=== PATIENT | female | born 1945 ===

== ENCOUNTER 2017-09-26 09:41 | Emergency (ER) | payer MEDICAID, MEDICARE ==
[2017-09-26 10:51] LABS: CHLORIDE,CL 103 mmol/L (98-107); SODIUM,NA 140 mmol/L (136-145)
--- NOTE | 2017-09-26 10:59 | EDM.PDOC ---
ED HPI GENERAL MEDICAL PROBLEM - General Chief Complaint: General Stated Complaint: fall Time Seen by Provider: 09/26/17 10:00 Source of Information: Reports: Patient, RN Notes Reviewed History Limitations: Reports: Altered Mental Status - History of Present Illness INITIAL COMMENTS - FREE TEXT/NARRATIVE: Patient is a 71-year-old female who was brought into the emergency room with increased confusion and after a fall she fell earlier in the morning and couldn' t get up she needed for for assistance to bring her up and to ambulate normally she takes about 1 I examined her and physically nothing seems to be out of place or dislocated or fracture weeks we did a CBC a BMP and a UA which are pending and now inability CAT scan of the head. Onset: Sudden Duration: Hour(s): Location: Reports: Generalized Quality: Reports: Other (Patient ADLs when moving unable to pinpoint location) Severity: Moderate Improves with: Reports: Rest Worsens with: Reports: Movement Context: Reports: Other (Fall) Associated Symptoms: Reports: Confusion - Related Data Allergies Allergy/AdvReac Type Severity Reaction Status Date / Time No Known Allergies Allergy Verified 09/26/17 10:05 Home Meds: Home Meds Acetaminophen [Tylenol] 650 mg PO Q6HR PRN MDD 3gms/day 09/26/17 [History] Benztropine Mesylate 1 mg PO BID 09/26/17 [History] Bisacodyl [Dulcolax] 5 mg PO Q12HR PRN 09/26/17 [History] Dextromethorphan/guaiFENesin [Mucinex DM ER 600-30 MG] 1 tab PO [id number] [History] Haloperidol [Haldol] 2.5 mg PO BEDTIME 09/26/17 [History] Losartan Potassium 50 mg PO BID 09/26/17 [History] Memantine HCl [Namenda] 10 mg PO BID 09/26/17 [History] Nitrofurantoin Monohyd/M-Cryst [Macrobid 100 mg Capsule] 100 mg PO BID 10 Days # 20 capsule 09/26/17 [Rx] Sertraline [Zoloft] 100 mg PO DAILY 09/26/17 [History] Social & Family History - Tobacco Use Smoking Status *Q: Former Smoker Used Tobacco, but Quit: Yes Month/Year Tobacco Last Used: 1 - Caffeine Use Caffeine Use: Reports: Coffee, Soda, Tea - Recreational Drug Use Recreational Drug Use: No ED ROS GENERAL - Review of Systems Review Of Systems: See Below Constitutional: Reports: Other (Generalized pain) HEENT: Reports: No Symptoms Respiratory: Reports: No Symptoms Cardiovascular: Reports: No Symptoms Endocrine: Reports: No Symptoms GI/Abdominal: Reports: No Symptoms : Reports: No Symptoms Musculoskeletal: Reports: No Symptoms Skin: Reports: No Symptoms Neurological: Reports: Confusion, Difficulty Walking Psychiatric: Reports: Agitation, Confusion Hematologic/Lymphatic: Reports: No Symptoms Immunologic: Reports: No Symptoms ED EXAM, GENERAL - Physical Exam Exam: See Below Exam Limited By: Altered Mental Status General Appearance: WD/WN Eye Exam: Bilateral Eye: EOMI, PERRL Ears: Normal External Exam, Normal Canal, Hearing Grossly Normal, Normal TMs Nose: Normal Inspection, Normal Mucosa, No Blood Throat/Mouth: Normal Inspection, Normal Lips, Normal Oropharynx Head: Atraumatic, Normocephalic Neck: Normal Inspection, Supple, Non-Tender, Full Range of Motion Respiratory/Chest: No Respiratory Distress, Lungs Clear, Normal Breath Sounds, No Accessory Muscle Use, Chest Non-Tender Cardiovascular: Normal Peripheral Pulses, Regular Rate, Rhythm, No Edema, No Gallop, No JVD, No Murmur, No Rub GI/Abdominal: Normal Bowel Sounds, Soft, Non-Tender, No Organomegaly, No Distention, No Abnormal Bruit, No Mass (Female) Exam: Normal External Exam, Other ([place] placed) Rectal (Female) Exam: Deferred Back Exam: Normal Inspection, Decreased Range of Motion Extremities: Normal Inspection, Normal Range of Motion, Pedal Edema Neurological: Confused, Disoriented, Slow to Respond. No: Normal Cognition Psychiatric: Anxious Skin Exam: Warm, Dry, Intact, Normal Color, No Rash Lymphatic: No Adenopathy Course - Vital Signs Last Recorded V/S: Last Vital Signs Temp 98.3 F 09/26/17 09:42 Pulse 58 L 09/26/17 09:42 Resp 20 09/26/17 09:42 BP 170/82 H 09/26/17 09:42 Pulse Ox 99 09/26/17 09:42 - Orders/Labs/Meds Orders: Active Orders 24 hr Category Date Time Status Head wo Cont [CT] Stat Exams 09/26/17 10:30 Taken UA W/MICROSCOPIC [URIN] Stat Lab 09/26/17 10:45 Ordered Labs: Laboratory Tests 09/26/17 09/26/17 09/26/17 Range/Units 10:30 10:30 10:45 WBC 10.6 H (4.0-10.2) K/uL RBC 4.66 (3.77-5.09) M/uL Hgb 13.4 (11.7-15.5) g/dL Hct 40.5 (34.0-46.0) % MCV 86.9 (84.0-98.0) fL MCH 28.8 (28.2-33.3) pg MCHC 33.1 (31.7-36.0) g/dL RDW 13.8 (11.2-14.1) % Plt Count 277 (150-350) K/uL Neut % (Auto) 69.4 (45.0-80.0) % Lymph % (Auto) 20.3 (10.0-50.0) % Roberts % (Auto) 9.1 (2.0-14.0) % Eos % (Auto) 0.9 (0.0-5.0) % Baso % (Auto) 0.3 (0.0-2.0) % Neut # (Auto) 7.33 H (1.40-7.00) K/uL Lymph # (Auto) 2.14 (0.50-3.50) K/uL Roberts # (Auto) 0.96 (0.00-1.00) K/uL Eos # (Auto) 0.09 (0.00-0.50) K/uL Baso # (Auto) 0.03 (0.00-0.20) K/uL Sodium 140 (136-145) mmol/L Potassium 3.5 (3.5-5.1) mmol/L Chloride 103 (98-107) mmol/L Carbon Dioxide 27.1 (21.0-32.0) mmol/L BUN 10 (7-18) mg/dL Creatinine 0.59 (0.51-1.17) mg/dL Est Cr Clr Drug Dosing 64.08 mL/min Estimated GFR (MDRD) > 60 mL/min Glucose 130 H (74-106) mg/dL Calcium 9.1 (8.5-10.1) mg/dL Specimen Type Urinvoid Urine Color Yellow Urine Appearance Slightly cloudy Urine pH 7.5 (5.0-9.0) Ur Specific [place] 1.015 (1.005-1.030) Urine Protein Negative (NEGATIVE) mg/dL Urine Glucose (UA) Negative (NEGATIVE) mg/dL Urine Ketones Negative (NEGATIVE) mg/dL Urine Occult Blood Negative (NEGATIVE) Urine Nitrite Negative (NEGATIVE) Urine Bilirubin Negative (NEGATIVE) Urine Urobilinogen 0.2 (0.2-1.0) E.U./dL Ur Leukocyte Esterase Large H (NEGATIVE) Urine RBC 0-5 /HPF Urine WBC 10-20 H /HPF Ur Epithelial Cells Few /LPF Urine Bacteria Many H (NONE TO FEW) /HPF Departure - Departure Time of Disposition: 11:45 Disposition: DC/Tfer to [facility] Condition: Fair Clinical Impression: UTI, Urinary tract infectious disease - Discharge Information Prescriptions: Nitrofurantoin Monohyd/M-Cryst [Macrobid 100 mg Capsule] 100 mg PO BID 10 Days # 20 capsule Forms: ED Department Discharge - My Orders Last 24 Hours: My Active Orders 09/26/17 10:30 Head wo Cont [CT] Stat 09/26/17 10:45 UA W/MICROSCOPIC [URIN] Stat - Assessment/Plan Last 24 Hours: My Active Orders 09/26/17 10:30 Head wo Cont [CT] Stat 09/26/17 10:45 UA W/MICROSCOPIC [URIN] Stat
== END 2017-09-26 12:10 ==
LOC: LL.ED 09:41
DX: N39.0 Urinary tract infection, site not specified (principal); Z87.891 Personal history of nicotine dependence; Z79.899 Other long term (current) drug therapy; W19.XXXA Unspecified fall, initial encounter
CPT/HCPCS: 36415; 70450; 80048; 81001; 85025; 99285

== ENCOUNTER 2017-09-27 12:15 | Emergency (ER) | payer MEDICAID ==
[2017-09-27] MEDS ORDERED: Sodium Chloride 0.9% 10 ML Syringe FLUSH PRN (12:16)
[2017-09-27] MEDS ORDERED: Famotidine 20 MG/2 ML SDV IVPUSH ONE (12:16)
--- NOTE | 2017-09-27 12:29 | EDM.PDOC ---
ED HPI GENERAL MEDICAL PROBLEM - General Chief Complaint: Neuro Symptoms/Deficits Stated Complaint: neurodeficit Time Seen by Provider: 09/27/17 12:15 Source of Information: Reports: Patient, EMS, Old Records ([facility] EMR. No paper hospital chart available.). Denies: EMS Notes Reviewed (Not available at time of dictation) History Limitations: Reports: Altered Mental Status - History of Present Illness INITIAL COMMENTS - FREE TEXT/NARRATIVE: The patient was brought to the emergency room via ambulance with special warfare operator accompaniment with O2 at 2 L/m by nasal cannula started by the special warfare operator with no other treatment prior to arrival. Note that the patient did appear normal at about 09:45 hours this morning, however was subsequently found to have some left -sided facial paresis and hemiparesis by the rounding nurse in the senior living at about 11:15 a.m. this morning. No other treatment given in the senior living by senior living staff. Patient does apparently have a previous history of a CVA. No history of fall, injury, sedation, other change in her neurological status with known organic brain syndrome. The patient's blood pressure was 180/ 103 at the senior living prior to transfer with some apparent diaphoresis noted by senior living staff. The patient denies any chest pain/pressure, heart flutter , dizziness, orthostasis, orthopnea, paresthesias, recent decreased exercise tolerance, or any other anginal-type symptoms. No recent history of abdominal pain, heartburn, nausea, diarrhea, melena, gross hematochezia, or any food intolerance, including fatty foods, etc.. The patient also denies any recent fever, cough, wheezing, dyspnea, etc.. She was evaluated in this emergency room yesterday and this facility by Martinez Ruvalcaba M.D. with newly diagnosed UTI and initiation of Macrobid at that time. Note some progressive confusion during the day prior to that evaluation. No history of recent headaches, visual changes , diplopia, change in mental status, or other change in neurological status. She denies any apparent current pain or discomfort. Onset: Today, Unknown/Unsure Onset Date: 09/27/17 Onset Time: 11:15 Duration: Constant Location: Reports: Other (No pain) Improves with: Reports: None Worsens with: Reports: None Context: Reports: Other (As above) Associated Symptoms: Reports: Confusion (As above), Weakness (As above). Denies : Chest Pain, Cough, Diaphoresis, Fever/Chills, Headaches, Loss of Appetite, Malaise, Nausea/Vomiting, Rash, Seizure, Shortness of Breath, Syncope Treatments GRADUATE ENGINEER: Reports: Oxygen - Related Data Allergies Allergy/AdvReac Type Severity Reaction Status Date / Time No Known Allergies Allergy Verified 09/26/17 10:05 Home Meds: Home Meds Acetaminophen [Tylenol] 650 mg PO Q6HR PRN MDD 3gms/day 09/26/17 [History] Benztropine Mesylate 1 mg PO BID 09/26/17 [History] Bisacodyl [Dulcolax] 5 mg PO Q12HR PRN 09/26/17 [History] Dextromethorphan/guaiFENesin [Mucinex DM ER 600-30 MG] 1 tab PO [id number] [History] Haloperidol [Haldol] 2.5 mg PO BEDTIME 09/26/17 [History] Losartan Potassium 50 mg PO BID 09/26/17 [History] Memantine HCl [Namenda] 10 mg PO BID 09/26/17 [History] Nitrofurantoin Monohyd/M-Cryst [Macrobid 100 mg Capsule] 100 mg PO BID 10 Days # 20 capsule 09/26/17 [Rx] Sertraline [Zoloft] 100 mg PO DAILY 09/26/17 [History] Past Medical History Cardiovascular History: Reports: Aneurysm, Hypertension, Syncope, Other (See Below). Denies: Arrhythmia, [place] (/) Other Cardiovascular History: Possible cerebral aneurysm secondary CVA as below Respiratory History: Reports: COPD Gastrointestinal History: Reports: Other (See Below) Other Gastrointestinal History: Umbilical hernia Genitourinary History: Reports: Urinary Incontinence Musculoskeletal History: Reports: Fracture, Osteoarthritis, Other (See Below) Other Musculoskeletal History: Previous wrist fracturesite unknown Neurological History: Reports: Alzheimers Disease, CVA, Other (See Below) Other Neuro History: Normal Pressure hydrocephalus. Known cerebral atrophy with organic brain syndrome. 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 Possible cerebral aneurysm. Psychiatric History: Reports: Alzheimers Disease, Anxiety, Bipolar, Depression , Psychosis, Other (See Below) Other Psychiatric History: Known psychosis and reva - Past Surgical History HEENT Surgical History: Reports: Oral Surgery, Other (See Below) Other HEENT Surgeries/Procedures: Complete teeth extraction Social & Family History - Family History Family Medical History: Unobtainable - Tobacco Use Smoking Status *Q: Current Every Day Smoker Tobacco Use Within Last Twelve Months: Cigarettes Packs/Tins Daily Comment: Smoking history unable to be obtained - Caffeine Use Caffeine Use: Reports: Coffee, Soda, Tea - Living Situation & Occupation Living situation: Reports: [facility] Occupation: Retired ED ROS GENERAL - Review of Systems Review Of Systems: Unable To Obtain ED EXAM, NEURO - Physical Exam Exam: See Below Exam Limited By: Altered Mental Status General Appearance: No Apparent Distress, Lethargic (Mild initially) Eye Exam: Bilateral Eye: EOMI, Normal Fundi, Normal Inspection (No nystagmus), PERRL Ears: Normal External Exam, Normal Canal, Hearing Grossly Normal, Normal TMs Nose: Normal Inspection, Normal Mucosa, No Blood Throat/Mouth: Normal Lips, Normal Gums, Normal Oropharynx, Normal Voice. No: Normal Teeth (Complete absent dentition with complete upper dentures), No Airway Compromise, Dysphagia, Inflammation, Perioral Cyanosis Head Exam: Atraumatic, Normocephalic. No: Facial Swelling, Facial Tenderness, Sinus Tenderness Neck: Supple, Non-Tender, Full Range of Motion, Carotid Bruit (Mild bilateral carotid bruits versus transmitted heart sounds). No: Lymphadenopathy (L), Lymphadenopathy (R), Thyromegaly Respiratory/Chest: No Respiratory Distress, No Accessory Muscle Use, Chest Non- Tender, Rales (Mild diffuse bilateral basilar rales particularly in the bases). No: Rhonchi, Wheezing, Pleural Rub, Retractions Cardiovascular: Normal Peripheral Pulses, Regular Rate, Rhythm, No Edema, No Gallop, No JVD, Systolic Murmur (Mild 1/6 ARACELIS of the aortic valve). No: No Rub , Gallop/S3, Gallop/S4, Friction Rub GI/Abdominal: Normal Bowel Sounds, Soft, Non-Tender, No Organomegaly, No Distention, No Abnormal Bruit, No Mass, Pelvis Stable, Hernia (One centimeter in diameter nonincarcerated umbilical hernia), Other (Obese). No: Guarding (Female) Exam: Deferred Rectal (Female) Exam: Deferred Neurological: Babinski (Positive left sided Babinski's). No: Oriented x 3 ( Mild lethargy which did improve during course of emergency room care. Moderate to severe organic brain syndrome. Mild right facial paresis and hemiparesis with exam difficult secondary to patient's mental status. No significant dysphagia.) Back Exam: Normal Inspection, Full Range of Motion. No: CVA Tenderness (L), CVA Tenderness (R), Muscle Spasm Extremities: Normal Inspection, Normal Range of Motion, Non-Tender, No Pedal Edema, Normal Capillary Refill. No: Del's Sign Psychiatric: Anxious (Mild). No: Depressed Mood Skin Exam: Warm, Dry, Intact, Normal Color, No Rash. No: Diaphoretic, Ecchymosis, Jaundice, Petechiae, Wound/Incision EKG INTERPRETATION EKG Date: 09/27/17 Time: 12:42 Rhythm: NSR Rate (Beats/Min): 77 [place]: Normal P-Wave: Enlarged (Mild diffuse biphasic P waves with severe poor R-wave progression in the anterior leads and cardiomegaly by chest x-ray) QRS: Wide (0.13 seconds with probable threatening complete right bundle branch block with current repolarization changes) ST-T: Other (Nonspecific ST changes with T-wave inversion in leads V6, 1, and aVL consistent with lateral wall cardiac ischemia) QT: Normal [place]/PQ Interval: 0.16 seconds Comparison: NA - No Prior EKG EKG Interpretation Comments: 1. Lateral wall cardiac ischemia 2. Atrial enlargement-left 3. Borderline incomplete right bundle branch block 4. Cardiomegaly by EKG Course - Vital Signs Last Recorded V/S: See stroke code sheet - Orders/Labs/Meds Orders: Active Orders 24 hr Category Date Time Status Blood Glucose Check, Bedside [RC] STAT Care 09/27/17 12:16 Active Cardiac Monitoring [RC] STAT Care 09/27/17 12:16 Active EKG Documentation Completion [RC] ASDIRECTED Care 09/27/17 12:16 Active NIH Stroke Scale [RC] ASDIRECTED Care 09/27/17 12:16 Active Oxygen Therapy, ED [RC] CONTINUOUS Care 09/27/17 12:16 Active Peripheral IV Care [RC] . DIRECTED Care 09/27/17 12:16 Active Pulse Oximetry [RC] CONTINUOUS Care 09/27/17 12:16 Active Up With Assistance [RC] ASDIRECTED Care 09/27/17 12:16 Active Vital Signs [RC] PFP Care 09/27/17 12:16 Active Nothing per Oral Now Diet [DIET] Diet 09/27/17 Breakfast Active Chest 1V Frontal [CR] Stat Exams 09/27/17 12:16 Taken Head wo Cont [CT] Stat Exams 09/27/17 12:16 Taken PROLACTIN [REF] Stat Lab 09/27/17 12:35 Received UA W/MICROSCOPIC [URIN] Stat Lab 09/27/17 12:16 Ordered Sodium Chloride 0.9% [Saline Flush] Med 09/27/17 12:16 Active 10 ml FLUSH ASDIRECTED PRN Obtain Past Medical Record [OM.PC] Stat Oth 09/27/17 12:16 Active Peripheral IV Insertion Adult [OM.PC] Stat Oth 09/27/17 12:16 Ordered Resuscitation Status Stat Resus Stat 09/27/17 12:16 Ordered Medication Orders Sodium Chloride (Saline Flush) 10 ml FLUSH ASDIRECTED PRN PRN Reason: Keep Vein Open Last Admin: 09/27/17 12:37 Dose: 10 ml Labs: Laboratory Tests 09/27/17 09/27/17 09/27/17 Range/Units 12:35 12:35 12:35 WBC 13.1 H (4.0-10.2) K/uL RBC 4.87 (3.77-5.09) M/uL Hgb 14.1 (11.7-15.5) g/dL Hct 41.8 (34.0-46.0) % MCV 85.8 (84.0-98.0) fL MCH 29.0 (28.2-33.3) pg MCHC 33.7 (31.7-36.0) g/dL RDW 14.0 (11.2-14.1) % Plt Count 318 (150-350) K/uL Neut % (Auto) 77.9 (45.0-80.0) % Lymph % (Auto) 13.7 (10.0-50.0) % [place] % (Auto) 8.0 (2.0-14.0) % Eos % (Auto) 0.2 (0.0-5.0) % Baso % (Auto) 0.2 (0.0-2.0) % Neut # (Auto) 10.20 H (1.40-7.00) K/uL Lymph # (Auto) 1.79 (0.50-3.50) K/uL [place] # (Auto) 1.05 H (0.00-1.00) K/uL Eos # (Auto) 0.02 (0.00-0.50) K/uL Baso # (Auto) 0.03 (0.00-0.20) K/uL PT 10.5 (9.8-11.7) SEC INR 1.0 APTT 26.2 (22.1-29.8) SEC D-Dimer, Quantitative 1100 H (0-400) ng/mL Sodium (136-145) mmol/L Potassium (3.5-5.1) mmol/L Chloride (98-107) mmol/L Carbon Dioxide (21.0-32.0) mmol/L BUN (7-18) mg/dL Creatinine (0.51-1.17) mg/dL Est Cr Clr Drug Dosing Estimated GFR (MDRD) mL/min Glucose (74-106) mg/dL Lactic Acid (0.4-2.0) mmol/L Uric Acid (2.6-7.2) mg/dL Calcium (8.5-10.1) mg/dL Magnesium (1.8-2.4) mg/dL Total Bilirubin (0.2-1.0) mg/dL AST (15-37) U/L ALT (12-78) U/L Alkaline Phosphatase (46-116) IU/L Creatine Kinase (26-308) U/L Creatine Kinase Index (0.0-2.5) % CK-MB (CK-2) (0.00-3.60) ng/mL Troponin I (0.000-0.056) ng/mL NT-Pro-B Natriuret Pep (0-125) pg/mL Total Protein (6.4-8.2) g/dL Albumin (3.4-5.0) g/dL TSH, Ultra Sensitive (0.358-3.740) mIU/mL 09/27/17 09/27/17 Range/Units 12:35 12:35 WBC (4.0-10.2) K/uL RBC (3.77-5.09) M/uL Hgb (11.7-15.5) g/dL Hct (34.0-46.0) % MCV (84.0-98.0) fL MCH (28.2-33.3) pg MCHC (31.7-36.0) g/dL RDW (11.2-14.1) % Plt Count (150-350) K/uL Neut % (Auto) (45.0-80.0) % Lymph % (Auto) (10.0-50.0) % [place] % (Auto) (2.0-14.0) % Eos % (Auto) (0.0-5.0) % Baso % (Auto) (0.0-2.0) % Neut # (Auto) (1.40-7.00) K/uL Lymph # (Auto) (0.50-3.50) K/uL [place] # (Auto) (0.00-1.00) K/uL Eos # (Auto) (0.00-0.50) K/uL Baso # (Auto) (0.00-0.20) K/uL PT (9.8-11.7) SEC INR APTT (22.1-29.8) SEC D-Dimer, Quantitative (0-400) ng/mL Sodium 139 (136-145) mmol/L Potassium 3.8 (3.5-5.1) mmol/L Chloride 104 (98-107) mmol/L Carbon Dioxide 26.1 (21.0-32.0) mmol/L BUN 10 (7-18) mg/dL Creatinine 0.60 (0.51-1.17) mg/dL Est Cr Clr Drug Dosing TNP Estimated GFR (MDRD) > 60 mL/min Glucose 119 H (74-106) mg/dL Lactic Acid 1.4 (0.4-2.0) mmol/L Uric Acid 3.0 (2.6-7.2) mg/dL Calcium 9.0 (8.5-10.1) mg/dL Magnesium 2.1 (1.8-2.4) mg/dL Total Bilirubin 0.5 (0.2-1.0) mg/dL AST 22 (15-37) U/L ALT 27 (12-78) U/L Alkaline Phosphatase 126 H (46-116) IU/L Creatine Kinase 48 (26-308) U/L Creatine Kinase Index 1.7 (0.0-2.5) % CK-MB (CK-2) 0.80 (0.00-3.60) ng/mL Troponin I 0.000 (0.000-0.056) ng/mL NT-Pro-B Natriuret Pep 247 H (0-125) pg/mL Total Protein 8.0 (6.4-8.2) g/dL Albumin 3.3 L (3.4-5.0) g/dL TSH, Ultra Sensitive 1.974 (0.358-3.740) mIU/mL Stat Accu-Chek on arrival 150 mg percent Meds: Medications Generic Name Dose Route Start Last Admin Trade Name Freq PRN Reason Stop Dose Admin Sodium Chloride 10 ml 09/27/17 12:16 09/27/17 12:37 Saline Flush FLUSH 10 ml ASDIRECTED PRN Administration Keep Vein Open Discontinued Medications Generic Name Dose Route Start Last Admin Trade Name Freq PRN Reason Stop Dose Admin Famotidine 40 mg 09/27/17 12:16 09/27/17 12:37 Pepcid IVPUSH 09/27/17 12:17 40 mg ONETIME ONE Administration - Radiology Interpretation Free Text/Narrative:: final expense agent shows normal sinus rhythm with average heart rate in the 70s with no ectopy or arrhythmia Chest x-ray, portable, shows evidence of moderate cardiomegaly and mostly centralized CHF. Moderate prominence of the proximal aortic arch with no pneumothorax or pulmonary infiltrates. Moderate COPD changes present. Additional evidence of a 1 cm inferior right upper lobe pulmonary nodule of unknown character CT of the head without contrast shows no evidence of acute changes with status post previous remote right basal ganglial lacunar infarction and chronic cerebral microvascular disease. Additional incidental left frontal meningioma. NOTE: Stat verbal report/read of CT scan did not received from the radiology department at despite my previous request and our internal policy. Departure - Departure Time of Disposition: 14:05 Disposition: DC/Tfer to Acute Hospital 02 Condition: Poor Clinical Impression: Organic brain syndrome (chronic), Hypoalbuminemia, D-dimer, elevated, Hyperglycemia, Meningioma Cerebrovascular accident (CVA) Qualifiers: CVA mechanism: unspecified Qualified Code(s): I63.9 - Cerebral infarction, unspecified Coronary artery disease Qualifiers: Coronary Disease-Associated Artery/Lesion type: [place] artery [place] vs. transplanted heart: [place] heart Associated angina: without angina Qualified Code(s): I25.10 - Atherosclerotic heart disease of [place] coronary artery without angina pectoris Hypertension Qualifiers: Hypertension type: essential hypertension Qualified Code(s): I10 - Essential ( primary) hypertension CHF (congestive heart failure) Qualifiers: Heart failure type: unspecified Heart failure chronicity: acute Qualified Code( s): I50.9 - Heart failure, unspecified Osteoarthritis Qualifiers: Osteoarthritis location: multiple joints Osteoarthritis type: primary Qualified Code(s): M15.0 - Primary generalized (osteo)arthritis UTI (urinary tract infection) Qualifiers: Urinary tract infection type: acute cystitis Hematuria presence: without hematuria Qualified Code(s): N30.00 - Acute cystitis without hematuria COPD (chronic obstructive pulmonary disease) Qualifiers: COPD type: emphysema Emphysema type: panlobular Qualified Code(s): J43.1 - Panlobular emphysema - Discharge Information Referrals: Sheets-Sharmin Canales MD [Primary Care Provider] - Forms: ED Department Discharge, Interfacility Transfer EMTALA - Problem List & Annotations (1) Cerebrovascular accident (CVA) SNOMED Code(s): 715896511 Code(s): I63.9 - CEREBRAL INFARCTION, UNSPECIFIED Status: Acute Priority : High Current Visit: Yes Onset Date: 09/27/17 Annotation/Comment:: Stroke code called by the nursing staff in this facility prior to arrival of the patient to the emergency room. Multiple attempts by emergency room nurses and nurses from [facility] to contact the patient's guardian were unsuccessful with patient a full code based on senior living records. Telephone consultation at 13:[address] Campbell, neurologist at , who does accept the patient for further evaluation and treatment, including initial evaluation in the emergency room with stroke code and stat MRI of the head to be conducted at that time per her request. She does agree to contact emergency room physicians for me concerning patient transfer, etc. No further treatment recommendations given. Per her recommendations aspirin was not given with the neurologist also requesting that no medications for her blood pressure be given at this time. Note previous history of distant right basilar CVA, possible cerebral aneurysm, chronic confusion, etc. as above. No further treatment recommendations given. Ambulance transfer with special warfare operator accompaniment and continuation of telemetry. Qualifiers: CVA mechanism: unspecified Qualified Code(s): I63.9 - Cerebral infarction, unspecified (2) Hypertension SNOMED Code(s): 65718224 Code(s): I10 - ESSENTIAL (PRIMARY) HYPERTENSION Status: Chronic Priority : High Current Visit: Yes Annotation/Comment:: Blood pressure somewhat elevated likely secondary to CVA as above. No further treatment per recommendations from the neurologist as above. Qualifiers: Hypertension type: essential hypertension Qualified Code(s): I10 - Essential (primary) hypertension (3) CHF (congestive heart failure) SNOMED Code(s): 53288087 Code(s): I50.9 - HEART FAILURE, UNSPECIFIED Status: Acute Priority: High Current Visit: Yes Onset Date: ~09/27/17 Annotation/Comment:: No known previous history of acute OH, CHF, etc., however limited records. No apparent recent history of chest pain or anginal type symptoms. Evidence of moderate CHF by chest x-ray with elevated d-dimer and BNP with cardiac enzymes otherwise normal. Note cardiomegaly by chest x-ray with lateral wall ischemic changes by EKG as above. No further anticoagulation, etc. per recommendations from the neurologist. Cardiology consultation depending on her clinical course. Consider nitroglycerin therapy, IV Lasix therapy, etc. by accepting providers. Qualifiers: Heart failure type: unspecified Heart failure chronicity: acute Qualified Code(s): I50.9 - Heart failure, unspecified (4) Coronary artery disease SNOMED Code(s): 61697513 Code(s): I25.10 - ATHSCL HEART DISEASE OF [place] CORONARY ARTERY W/O ANG PCTRS Status: Acute Priority: High Current Visit: Yes Onset Date: Annotation/Comment:: As above Qualifiers: Coronary Disease-Associated Artery/Lesion type: [place] artery [place] vs. transplanted heart: [place] heart Associated angina: without angina Qualified Code(s): I25.10 - Atherosclerotic heart disease of [place] coronary artery without angina pectoris (5) UTI, Urinary tract infectious disease SNOMED Code(s): 72168412 Code(s): N39.0 - URINARY TRACT INFECTION, SITE NOT SPECIFIED Status: Acute Priority: Medium Current Visit: Yes Onset Date: 09/26/17 Annotation/ Comment:: Newly diagnosed UTI yesterday as above. Macrobid initiated as above. Note previous mild worsening of her baseline chronic moderate organic brain syndrome from that infection as above. In addition, note mild leukocytosis likely secondary to her UTI. (6) COPD (chronic obstructive pulmonary disease) SNOMED Code(s): 34162563 Code(s): J44.9 - CHRONIC OBSTRUCTIVE PULMONARY DISEASE, UNSPECIFIED Status : Chronic Priority: Medium Current Visit: Yes Annotation/Comment:: Stable by history with no recent bronchitic type symptoms Qualifiers: COPD type: emphysema Emphysema type: panlobular Qualified Code(s): J43.1 - Panlobular emphysema (7) D-dimer, elevated SNOMED Code(s): 055604341 Code(s): R79.89 - OTHER SPECIFIED ABNORMAL FINDINGS OF BLOOD CHEMISTRY Status: Acute Priority: High Current Visit: Yes Onset Date: 09/27/17 Annotation/Comment:: No evidence of PE or DVT by clinical exam. Consider CTA of the chest depending on her clinical course as above. (8) Hyperglycemia SNOMED Code(s): 32885505 Code(s): R73.9 - HYPERGLYCEMIA, UNSPECIFIED Status: Acute Priority: Medium Current Visit: Yes Onset Date: 09/27/17 Annotation/Comment:: No known previous history of diabetes. Mildly elevated nonfasting blood sugar. Further workup, including glycosylated hemoglobin, etc. depending on her clinical course. (9) Hypoalbuminemia SNOMED Code(s): 280439743 Code(s): E88.09 - OTH DISORDERS OF PLASMA-PROTEIN METABOLISM, NEC Status: Acute Priority: Medium Current Visit: Yes Onset Date: 09/27/17 Annotation/Comment:: Consider high-protein Glucerna supplements. (10) Meningioma SNOMED Code(s): 099719663 Code(s): D32.9 - BENIGN NEOPLASM OF MENING[place], UNSPECIFIED Status: Acute Priority: High Current Visit: Yes Onset Date: 09/27/17 Annotation/Comment: : Incidental finding of left frontal meningioma by CT scan as above. (11) Organic brain syndrome (chronic) SNOMED Code(s): 846897106 Code(s): F09 - UNSP MENTAL DISORDER DUE TO KNOWN PHYSIOLOGICAL CONDITION Status: Chronic Priority: High Current Visit: Yes Annotation/Comment:: Improved alertness prior to transfer. Note recent increased confusion secondary to UTI as above. (12) Osteoarthritis SNOMED Code(s): 378295480 Code(s): M19.90 - UNSPECIFIED OSTEOARTHRITIS, UNSPECIFIED SITE Status: Chronic Priority: Medium Current Visit: Yes Annotation/Comment:: Stable by history with no known recent fall, injury, etc. Qualifiers: Osteoarthritis location: multiple joints Osteoarthritis type: primary Qualified Code(s): M15.0 - Primary generalized (osteo)arthritis - Problem List Review Problem List Initiated/Reviewed/Updated: Yes - My Orders Last 24 Hours: My Active Orders 09/27/17 12:16 Blood Glucose Check, Bedside [RC] STAT Cardiac Monitoring [RC] STAT EKG Documentation Completion [RC] ASDIRECTED NIH Stroke Scale [RC] ASDIRECTED Oxygen Therapy, ED [RC] CONTINUOUS Peripheral IV Care [RC] . DIRECTED Pulse Oximetry [RC] CONTINUOUS Up With Assistance [RC] ASDIRECTED Vital Signs [RC] PFP Chest 1V Frontal [CR] Stat Head wo Cont [CT] Stat UA W/MICROSCOPIC [URIN] Stat Sodium Chloride 0.9% [Saline Flush] 10 ml FLUSH ASDIRECTED PRN Obtain Past Medical Record [OM.PC] Stat Peripheral IV Insertion Adult [OM.PC] Stat Resuscitation Status Stat 09/27/17 12:35 PROLACTIN [REF] Stat 09/27/17 Breakfast Nothing per Oral Now Diet [DIET] - Assessment/Plan Admission H&P: Please use this note as an admission H&P Last 24 Hours: My Active Orders 09/27/17 12:16 Blood Glucose Check, Bedside [RC] STAT Cardiac Monitoring [RC] STAT EKG Documentation Completion [RC] ASDIRECTED NIH Stroke Scale [RC] ASDIRECTED Oxygen Therapy, ED [RC] CONTINUOUS Peripheral IV Care [RC] . DIRECTED Pulse Oximetry [RC] CONTINUOUS Up With Assistance [RC] ASDIRECTED Vital Signs [RC] PFP Chest 1V Frontal [CR] Stat Head wo Cont [CT] Stat UA W/MICROSCOPIC [URIN] Stat Sodium Chloride 0.9% [Saline Flush] 10 ml FLUSH ASDIRECTED PRN Obtain Past Medical Record [OM.PC] Stat Peripheral IV Insertion Adult [OM.PC] Stat Resuscitation Status Stat 09/27/17 12:35 PROLACTIN [REF] Stat 09/27/17 Breakfast Nothing per Oral Now Diet [DIET] Assessment:: As above Plan: As above. Ambulance transfer with special warfare operator accompaniment as above
[2017-09-27 13:04] LABS: CHLORIDE,CL 104 mmol/L (98-107); SODIUM,NA 139 mmol/L (136-145)
== END 2017-09-27 14:05 ==
LOC: LL.ED 12:15
DX: I63.9 Cerebral infarction, unspecified (principal); I11.0 Hypertensive heart disease with heart failure; I50.9 Heart failure, unspecified; F09 Unspecified mental disorder due to known physiological condition; D32.9 Benign neoplasm of meninges, unspecified; M15.0 Primary generalized (osteo)arthritis; N30.00 Acute cystitis without hematuria; J43.1 Panlobular emphysema; F17.210 Nicotine dependence, cigarettes, uncomplicated; I25.10 Atherosclerotic heart disease of native coronary artery without angina pectoris; E88.09 Other disorders of plasma-protein metabolism, not elsewhere classified; Z79.899 Other long term (current) drug therapy
CPT/HCPCS: 36415; 70450; 71045; 80053; 82550; 82553; 83605; 83735; 83880; 84146; 84443; 84484; 84550; 85025; 85379; 85610; 85730; 93005; 96374; 99291; 99292; J7050; S0028